=== PATIENT | female | born 2000 | race Two or more races ===

== ENCOUNTER 2022-10-14 10:45 | Inpatient (IN) | payer BC ==
[2022-10-14 11:13] VITALS: RESP 18
[2022-10-14] MEDS: ELECTROLYTE-148 SOLN 1,000 ML IV SCH (11:40)
[2022-10-14 12:26] VITALS: BMI 33.2
[2022-10-14 13:08] LABS: BASO % 0.2 % (0-2.0); EOS % 0.1 % (0-4.5); HEMATOCRIT 39.4 % (32.4-45.2); HEMOGLOBIN 13.3 GM/dL (10.7-15.3); LYMPH % 8.2 % (8-40); MCH 28.9 pg (25.7-33.7); MCHC 33.8 g/dl (32.0-36.0); MEAN CELL VOLUME 85.4 fl (80-96); MEAN PLT VOLUME 8.5 fl (7.5-11.1); MONO % 5.3 % (3.8-10.2); NEUT % 86.2 % (42.8-82.8); PLATELET COUNT 200 10^3/uL (134-434); RBC 4.62 M/mm3 (3.60-5.2); RDW 20.6 % (11.6-15.6)
[2022-10-14 13:13] LABS: INR 0.9 (0.83-1.09); PROTHROMBIN TIME (PATIENT) 10.5 SEC (9.7-13.0)
[2022-10-14 13:25] LABS: POTASSIUM 4.2 mmol/L (3.5-5.1)
[2022-10-14 13:26] LABS: BLOOD UREA NITROGEN 11.3 mg/dL (7-18); CALCIUM 8.7 mg/dL (8.5-10.1)
[2022-10-14 13:30] LABS: CREATININE 0.6 mg/dL (0.55-1.3)
[2022-10-14] MEDS ORDERED: FENTANYL/BUPIVACAINE/NS/PF - PCEA - 50 ML DISP.SYRIN EP ONE (14:03)
[2022-10-14] MEDS ORDERED: OXYTOCIN 20 UNITS in 0.9% NS 20 UNIT/1,000 ML INFUS.BAG IV ONE (14:31)
[2022-10-14] MEDS ORDERED: OXYTOCIN 30 UNITS in 0.9% NS 30 UNIT/500 ML INFUS.BAG IVPB ONE (14:55)
[2022-10-14] MEDS: OXYTOCIN 30 UNITS in 0.9% NS 30 UNIT/500 ML INFUS.BAG IVPB SCH (15:05)
[2022-10-14] MEDS ORDERED: IBUPROFEN 600 MG TABLET (FP) PO ONE (15:12)
[2022-10-14] MEDS ORDERED: oxyCODONE HCL 5 MG TABLET PO PRN (15:53)
[2022-10-14] MEDS ORDERED: IBUPROFEN 600 MG TABLET (FP) PO PRN (15:53)
[2022-10-14] MEDS ORDERED: BISACODYL 10 MG SUPP.RECT RC PRN (15:53)
[2022-10-14] MEDS ORDERED: METHYLERGONOVINE MALEATE 0.2 MG/1 ML AMP IM PRN (15:53)
[2022-10-14] MEDS ORDERED: BENZOCAINE 20% 57 GM BOTTLE TP PRN (15:53)
[2022-10-14] MEDS ORDERED: ACETAMINOPHEN 325 MG TABLET (FP) PO PRN (15:53)
[2022-10-14] MEDS ORDERED: BENZOCAINE 28 GM HEMORRHOIDAL OINTMENT TP PRN (15:53)
[2022-10-14] MEDS ORDERED: WITCH HAZEL 50% (TUCKS) 40 PAD/JAR PAD TP PRN (15:53)
[2022-10-14] MEDS ORDERED: OXYTOCIN 20 UNITS in 0.9% NS 20 UNIT/1,000 ML INFUS.BAG IV SCH (16:00)
[2022-10-14 17:00] LABS: CORD BASE EXCESS -5.9 mmol/L (0-2); CORD HCO3 20.9 mmHg (20-29); CORD PCO2 45.5 mmHg (30-78); CORD pH 7.28 (7.14-7.44)
[2022-10-14 17:23] LABS: CORD HCO3 22.1 mmHg (20-29); CORD PCO2 50.2 mmHg (30-78); CORD pH 7.262 (7.14-7.44)
[2022-10-15 10:39] LABS: BASO % 0.3 % (0-2.0); EOS % 0.1 % (0-4.5); HEMATOCRIT 36.8 % (32.4-45.2); LYMPH % 12.4 % (8-40); MCH 28.8 pg (25.7-33.7); MCHC 32.7 g/dl (32.0-36.0); MEAN PLT VOLUME 8.8 fl (7.5-11.1); MONO % 4.5 % (3.8-10.2); NEUT % 82.7 % (42.8-82.8); PLATELET COUNT 207 10^3/uL (134-434); RBC 4.18 M/mm3 (3.60-5.2); RDW 20.9 % (11.6-15.6); WHITE BLOOD COUNT 11.7 K/mm3 (4.0-10.0)
[2022-10-15] MEDS: OXYTOCIN 30 UNITS in 0.9% NS 30 UNIT/500 ML INFUS.BAG IVPB SCH (19:16)
[2022-10-15] MEDS: ELECTROLYTE-148 SOLN 1,000 ML IV SCH (19:16)
[2022-10-15] MEDS ORDERED: SENNOSIDES/DOCUSATE COMBO (SENNA PLUS) TABLET (UD) PO PRN (22:00)
[2022-10-16 12:10] VITALS: BP 93/62; PULSE 79; TEMP 98.4
== END 2022-10-16 12:50 | disposition home or self-care (01) | DRG 560 ==
LOC: JDEL 10:45 → JLDR 11:39 → J3W 17:15
PROVIDERS: ADMIT Obstetrics & Gynecology; ATTEND Obstetrics & Gynecology
PROC: 10E0XZZ Delivery of Products of Conception, External Approach (ICD-10-PCS; principal; 2022-10-14)
PROC: 0W8NXZZ Division of Female Perineum, External Approach (ICD-10-PCS; 2022-10-14)
DX: O48.0 Post-term pregnancy (principal); Z3A.41 41 weeks gestation of pregnancy; Z37.0 Single live birth
CPT/HCPCS: 36415; 36600; 59025; 80048; 82803; 85025; 85610; 85730; 86780; 86850; 86900; 86901